=== PATIENT | male | born 1930 | race Caucasian/White ===

== ENCOUNTER 2016-08-10 15:30 | Emergency (ER) | payer OTHER ==
[~2016-08-10] VITALS: Ht 167.6 cm; Wt 81.7 kg
[2016-08-10 16:30] VITALS: BP 153/80
== END 2016-08-10 17:32 | disposition home or self-care (01) ==
LOC: ER 15:30
DX: K59.00 Constipation, unspecified (principal); Z87.891 Personal history of nicotine dependence